=== PATIENT | female | born 1955 | race Caucasian/White ===

== ENCOUNTER 2021-01-04 09:47 | Outpatient (CLI) | payer BC | END 2021-01-04 09:48 | disposition home or self-care (01) | LOC: CSHWCC 09:47 | PROVIDERS: ATTEND Nurse Practitioner Family | DX: I87.311 Chronic venous hypertension (idiopathic) with ulcer of right lower extremity (principal); E66.3 Overweight; I83.893 Varicose veins of bilateral lower extremities with other complications; I87.2 Venous insufficiency (chronic) (peripheral); L97.312 Non-pressure chronic ulcer of right ankle with fat layer exposed; R60.0 Localized edema; X58.XXXS Exposure to other specified factors, sequela | CPT/HCPCS: 99213; G0463 ==

== ENCOUNTER 2021-01-18 11:02 | Outpatient (CLI) | payer BC | END 2021-01-18 11:03 | disposition home or self-care (01) | LOC: CSHWCC 11:02 | PROVIDERS: ATTEND Nurse Practitioner Family | DX: I83.013 Varicose veins of right lower extremity with ulcer of ankle (principal); I83.892 Varicose veins of left lower extremity with other complications; I87.2 Venous insufficiency (chronic) (peripheral); L97.312 Non-pressure chronic ulcer of right ankle with fat layer exposed; E66.3 Overweight; X58.XXXD Exposure to other specified factors, subsequent encounter | CPT/HCPCS: 99212; G0463 ==